=== PATIENT | male | born 1965 | race Caucasian/White ===

== ENCOUNTER 2020-01-13 11:36 | Day surgery (SDC) | payer OTHER ==
[~2020-01-13] VITALS: Ht 188 cm; Wt 111.1 kg
--- NOTE | ~2020-01-13 | O ---
[facility] [place] [address] OPERATIVE REPORT Name: MEGAN ALEXANDER Room #: 150-1 [facility]..#: [id number] Admission: 01/13/20 Attend Phys: Jacob Strickland MD Discharge: Date of : 61 Report #: [id number] THIS REPORT FOR: cc: Kings Abbasi MD, Steven A. MD Franey,Jacob Smith MD ~ CC: Svetlana Strickland DATE OF SERVICE: 01/13/[address] Jacob Strickland and Dr. Kings Ortiz, also Dr. Jacob Polo. PREOPERATIVE DIAGNOSIS: Umbilical hernia. POSTOPERATIVE DIAGNOSIS: Umbilical hernia. PROCEDURE: Umbilical hernia repair. SURGEON: Jacob Strickland MD ANESTHESIA: Local IV sedation. DESCRIPTION OF PROCEDURE: The patient was brought to the operating room and placed on operative table in the supine position. Sequential compression devices were in place for DVT prophylaxis. There was no indication for preoperative antibiotics. The patient underwent IV sedation and the abdomen was then prepped and draped in a sterile fashion. Skin and subcutaneous tissue around the umbilicus was infiltrated with 0.5% Marcaine and 1% Xylocaine in a 1:1 mixture. Transverse infraumbilical skin incision was then performed using #15 scalpel blade. Hemostasis obtained using electrocautery. Dissection was carried down through the subcutaneous tissue to the hernia sac with some incarcerated preperitoneal fat that was dissected free and reduced back into the abdomen. The fascial defect was then closed using interrupted [id number]-ef-[id number] #1 Prolene sutures. The umbilicus was then tacked to the fascia using interrupted [id number]-gn-icljk 2-0 chromic suture. Deep and superficial subcutaneous tissue was then reapproximated using simple interrupted 2-0 chromic sutures and the skin then closed with a running 4-0 subcuticular Vicryl stitch. The wound was then dressed with Dermabond, Telfa, 4 x 4 gauze, sponge and tape. The patient was then awakened from the IV sedation, taken to recovery room in [address] [address] OPERATIVE REPORT Name: MEGAN ALEXANDER Room #: 150-1 [facility]..#: [id number] Admission: 01/13/20 Attend Phys: Jacob Strickland MD Discharge: Date of : 61 Report #: [id number] good condition. Estimated blood loss was less than 5 mL and the patient tolerated procedure well. All sponge, lap and instrument counts correct x 2. By: 1443 1457 Jacob Strickland MD /nt
[~2020-01-13 11:36] MED LIST: AMLODIPINE BESY10 MG PO; BENAZEPRIL HCL40 MG PO; CENTRUM SILVER1 EAC7 PO; CLARITIN10 M3 PO; FISH OIL 1,0001 EAC9 PO; GLUCOPHAGE XR750 M1 PO; IBUPROFEN 400400 M1 PO; JARDIANCE25 MG PO; LIPITOR10 MG PO; LUTEIN-ZEAXANT1 EACH PO; SPIRONOLACTONE25 MG PO; TOPROL XL100 MG PO
[2020-01-13 12:30] VITALS: BP 157/71
[2020-01-13 12:36] LABS: CALCIUM 9.1 mg/dL (8.5-10.1); CREATININE 0.8 mg/dL (0.7-1.3); POTASSIUM 4.1 mmol/L (3.5-5.1)
[2020-01-13] MEDS ORDERED: NORCO 5-325 TA1 EAC2 PO (13:57)
--- NOTE | 2020-01-13 14:08 | EKG ---
[facility] [place] [address] ELECTROCARDIOGRAM REPORT Name: MEGAN ALEXANDER Room #: [address] [place] [address] M.R.#: [id number] Admission: 01/13/20 Attend Phys: Jacob Strickland MD Discharge: Date of : 61 Report #: [id number] THIS REPORT FOR: cc: Kings Abbasi MD, Steven A. MD Couchonnal, Luis F. MD ~ THIS REPORT FOR: //name// [facility] Test Date: 2020-01-13 Test Time: 12:26:42 Pat Name: MEGAN ALEXANDER Department: Room: [facility] Gender: M [employer]: RAF : 1965 Requested By: Lisandro Montoya Order Number: [id number] MD: Tung Flanagan Measurements Intervals [place] Rate: 66 P: 29 SD: 170 QRS: 7 QRSD: 101 T: 31 QT: 402 QTc: 422 Interpretive Statements Sinus rhythm Probable left ventricular hypertrophy Anterior ST elevation, probably due to LVH No previous ECG available for comparison Electronically Signed On 01-13-2020 14:08:12 CDT by Tung Flanagan [email or web address] <ELECTRONICALLY SIGNED> By: Tung Flanagan MD 01/13/20 1408 1226 1226 Tung Flanagan MD /EPI
[2020-01-13 15:04] VITALS: BP 157/71
== END 2020-01-13 13:59 | disposition home or self-care (01) ==
LOC: OR 11:36 → TBA 11:37 → OR 11:43
PROVIDERS: Anesthesiology; ATTEND Surgery
DX: K42.0 Umbilical hernia with obstruction, without gangrene (principal); I10 Essential (primary) hypertension; E11.9 Type 2 diabetes mellitus without complications; E78.00 Pure hypercholesterolemia, unspecified; Z98.890 Other specified postprocedural states; Z11.59 Encounter for screening for other viral diseases; Z79.899 Other long term (current) drug therapy
CPT/HCPCS: 50010; 50101; 50386; 50417; 54118; 56524; 56525; 56526; 62110; 62850; 70005